=== PATIENT | male | born 2000 | race Caucasian/White ===

== ENCOUNTER → 2023-07-16 10:21 | Outpatient (BNVA) | payer MEDICAID, SELFPAY | PROVIDERS: PCP Nurse Practitioner Family; Visit Provider Nurse Practitioner Family | DX: R10.9 Unspecified abdominal pain (principal); K29.60 Other gastritis without bleeding; Z79.899 Other long term (current) drug therapy; Z13.6 Encounter for screening for cardiovascular disorders | CPT/HCPCS: 80053; 80061; 81003; 83036; 84443; 85025 ==